=== PATIENT | female | born 1945 | race Caucasian/White ===

== ENCOUNTER 2018-07-07 18:29 | Inpatient (IN) | payer MEDICARE, OTHER ==
[~2018-07-07] VITALS: Ht 167.6 cm; Wt 113.9 kg
[2018-07-07] MEDS ORDERED: RIVAROXABAN 15 MG TABLET. PO STA (18:39)
[2018-07-07 19:00] LABS: BASO % 1 % (0-3); EOS # 0.2 x10^3/uL (0.0-0.7); EOS % 2 % (0-3); HEMATOCRIT 41.8 % (36.0-47.0); LYMPH # 1.5 x10^3/uL (1.0-4.8); LYMPH % 23 % (24-48); MEAN CORPUSCULAR HEMOGLOBIN 30 pg (25-35); MEAN CORPUSCULAR HGB CONC 34 g/dL (31-37); MEAN CORPUSCULAR VOLUME 91 fL (79-100); MONO # 0.7 x10^3/uL (0.0-1.1); MONO % 11 % (0-9); NEUT # 4.2 x10^3uL (1.8-7.7); NEUT % 63 % (31-73); PLATELET COUNT 329 x10^3/uL (140-400); RED BLOOD COUNT 4.62 x10^6/uL (3.50-5.40); RED CELL DISTRIBUTION WIDTH 13.9 % (11.5-14.5); WHITE BLOOD COUNT 6.6 x10^3/uL (4.0-11.0)
[2018-07-07] MEDS ORDERED: dilTIAZem IV PUSH 25 MG/5 ML VIAL IVP ONE (19:00)
[2018-07-07] MEDS ORDERED: dilTIAZem INJ 125 MG in IV DEXTROSE 5% 100ML 100 ML IV ONE (19:00)
[2018-07-07] MEDS ORDERED: IV NORMAL SALINE 500ML BAG 500 ML IV ONE (19:00)
[2018-07-07 19:08] LABS: CALCIUM 10.8 mg/dL (8.5-10.1); CREATININE 0.8 mg/dL (0.6-1.0); GFR 70.3; POTASSIUM 4.4 mmol/L (3.5-5.1)
[2018-07-07 19:10] LABS: PROTHROMBIN TIME PATIENT 13.1 SEC (11.7-14.0)
[2018-07-07 19:14] LABS: ALBUMIN 2.8 g/dL (3.4-5.0); ALBUMIN/GLOBULIN RATIO 0.6 (1.0-1.7); TOTAL BILIRUBIN 0.3 mg/dL (0.2-1.0); TOTAL PROTEIN 7.5 g/dL (6.4-8.2)
[2018-07-07 19:22] LABS: BILIRUBIN,URINE NEGATIVE (NEG); CLARITY,URINE CLEAR; COLOR,URINE YELLOW; NITRITE,URINE NEGATIVE (NEG); PROTEIN,URINE NEGATIVE (NEG-TRACE); UROBILINOGEN,URINE 0.2 mg/dL (0.2 mg/dL)
--- NOTE | 2018-07-07 19:34 | RAD ---
EXAM: Chest, single view. HISTORY: Shortness of air. COMPARISON: None. FINDINGS: A frontal view of the chest is obtained. There is mild increased central interstitial opacity likely due to atelectasis. There is no consolidation, pleural effusion or pneumothorax. The heart is normal in size. IMPRESSION: Mild central increased interstitial opacity without eliu congestion or focal infiltrate. Electronically signed by: Connie Kirkpatrick MD (07/07/2018 7:32 PM) [facility]
[2018-07-07 19:49] LABS: BACTERIA,URINE 0 /HPF (0-FEW); RBC,URINE OCC /HPF (0-2); SQUAMOUS EPITHELIAL CELL,UR FEW /LPF
--- NOTE | 2018-07-07 20:03 | PHYS DOC ---
Past Medical History Past Medical History: CHF, COPD, Dementia, Diabetes-Type II, GERD, High Cholesterol, Hypertension Additional Past Medical Histor: MS, Alcohol Use: None Drug Use: None Adult General Chief Complaint Chief Complaint: CHEST PAIN HPI HPI Patient is a 72 year old [facility] with [facility] pressure and a fall she had a fall around 11 AM she said she was outside and she tripped. About 2 hours after that she began to develop some palpitations and chest pressure felt like her heart was racing possible mild shortness of breath no fever history is somewhat limited by dementia. Review of Systems Review of Systems Somewhat limited by dementia overall Current Medications Current Medications Current Medications Medications (Trade) Dose Ordered Sig/Jane Start Time Stop Time Status Last Admin Dose Admin Diltiazem HCl (Cardizem Iv Push) 10 mg 1X ONCE 07/07/18 19:00 07/07/18 19:01 DC 07/07/18 19:04 10 MG Diltiazem HCl 125 mg/Dextrose 125 ml @ 5 mls/hr 1X ONCE 07/07/18 19:00 07/08/18 19:59 07/07/18 19:08 5 MLS/HR Rivaroxaban (Xarelto) 15 mg 1X STAT 07/07/18 18:39 07/07/18 18:47 DC 07/07/18 19:01 15 MG Sodium Chloride 500 ml @ 500 mls/hr 1X ONCE 07/07/18 19:00 07/07/18 19:59 DC 07/07/18 19:08 500 MLS/HR Allergies Allergies Allergies Coded Allergies Type Severity Reaction Last Updated Verified Unable to Assess 07/07/18 No Physical Exam Physical Exam Constitutional: Well developed, well nourished, no acute distress, non-toxic appearance. [] HENT: Normocephalic, atraumatic, bilateral external ears normal, oropharynx moist, no oral exudates, nose normal. [] Eyes: PERRLA, EOMI, conjunctiva normal, no discharge. [] Neck: Normal range of motion, no tenderness, supple, no stridor. [] Cardiovascular: Tachycardic and irregular no definite murmurs Lungs & Thorax: Bilateral breath sounds clear to auscultation [] Abdomen: Bowel sounds normal, soft, no tenderness, no masses, no pulsatile masses. [] Skin: Warm, dry, no erythema, no rash. [] Back: No tenderness, no CVA tenderness. [] Extremities: No tenderness, no cyanosis, no clubbing, ROM intact, 1+ symmetric edema urologic: Alert and oriented X 3, normal motor function, normal sensory function , no focal deficits noted. [] Psychologic: Affect normal, judgement normal, mood normal. [] Current Patient Data Vital Signs Vital Signs Date Time Temp Pulse Resp B/P (MAP) Pulse Ox O2 Delivery O2 Flow Rate FiO2 07/07/18 19:04 133 156/84 07/07/18 18:30 97.7 20 97 Room Air 97.7 Lab Values Laboratory Tests Test 07/07/18 18:48 07/07/18 18:50 White Blood Count 6.6 x10^3/uL (4.0-11.0) Red Blood Count 4.62 x10^6/uL (3.50-5.40) Hemoglobin 14.0 g/dL (12.0-15.5) Hematocrit 41.8 % (36.0-47.0) Mean Corpuscular Volume 91 fL (79-100) Mean Corpuscular Hemoglobin 30 pg (25-35) Mean Corpuscular Hemoglobin Concent 34 g/dL (31-37) Red Cell Distribution Width 13.9 % (11.5-14.5) Platelet Count 329 x10^3/uL (140-400) Neutrophils (%) (Auto) 63 % (31-73) Lymphocytes (%) (Auto) 23 % (24-48) L Monocytes (%) (Auto) 11 % (0-9) H Eosinophils (%) (Auto) 2 % (0-3) Basophils (%) (Auto) 1 % (0-3) Neutrophils # (Auto) 4.2 x10^3uL (1.8-7.7) Lymphocytes # (Auto) 1.5 x10^3/uL (1.0-4.8) Monocytes # (Auto) 0.7 x10^3/uL (0.0-1.1) Eosinophils # (Auto) 0.2 x10^3/uL (0.0-0.7) Basophils # (Auto) 0.0 x10^3/uL (0.0-0.2) Sodium Level 138 mmol/L (136-145) Potassium Level 4.4 mmol/L (3.5-5.1) Chloride Level 100 mmol/L (98-107) Carbon Dioxide Level 31 mmol/L (21-32) Anion Gap 7 (6-14) Blood Urea Nitrogen 22 mg/dL (7-20) H Creatinine 0.8 mg/dL (0.6-1.0) Estimated GFR (Cockcroft-Gault) 70.3 BUN/Creatinine Ratio 28 (6-20) H Glucose Level 164 mg/dL (70-99) H Calcium Level 10.8 mg/dL (8.5-10.1) H Total Bilirubin 0.3 mg/dL (0.2-1.0) Aspartate Amino Transferase (AST) 32 U/L (15-37) Alanine Aminotransferase (ALT) 39 U/L (14-59) Alkaline Phosphatase 176 U/L (46-116) H Troponin I Quantitative < 0.017 ng/mL (0.000-0.055) JX-[id number]-Z-Type Natriuretic Peptide 78 pg/mL (0-124) Total Protein 7.5 g/dL (6.4-8.2) Albumin 2.8 g/dL (3.4-5.0) L Albumin/Globulin Ratio 0.6 (1.0-1.7) L Thyroid Stimulating Hormone (TSH) 2.788 uIU/mL (0.358-3.74) Ethyl Alcohol Level < 10 mg/dL (0-10) Urine Collection Type Unknown Urine Color Yellow Urine Clarity Clear Urine pH 7.0 Urine Specific [place] <=1.005 Urine Protein Negative mg/dL (NEG-TRACE) Urine Glucose (UA) Negative mg/dL (NEG) Urine Ketones (Stick) Negative mg/dL (NEG) Urine Blood Negative (NEG) Urine Nitrite Negative (NEG) Urine Bilirubin Negative (NEG) Urine Urobilinogen Dipstick 0.2 mg/dL (0.2 mg/dL) Urine Leukocyte Esterase Trace (NEG) Urine RBC Occ /HPF (0-2) Urine WBC 1-4 /HPF (0-4) Urine Squamous Epithelial Cells Few /LPF Urine Bacteria 0 /HPF (0-FEW) Laboratory Tests 07/07/18 18:48 Laboratory Tests 07/07/18 18:48 EKG EKG []A. fib RVR rate 162 ST changes noted laterally probably rate related ST depressions no STEMI seen. Radiology/Procedures Radiology/Procedures [] Impressions: IMPRESSION: Mild central increased interstitial opacity without eliu congestion or focal infiltrate. Electronically signed by: Connie Granados MD (07/07/2018 7:32 PM) [facility] DICTATED and SIGNED BY: CONNIE GRANADOS MD DATE: 07/07/181931 Course & Med Decision Making Course & Med Decision Making Pertinent Labs and Imaging studies reviewed. (See chart for details) 72-year-old female with a history of GERD hypothyroidism dementia presenting with atrial fibrillation with RVR appears to be a new diagnosis based on my [facility]. She was given a dose of Xarelto unknown time frame of onset given her dementia do not rely on the history. Troponin negative chest x-ray looks good patient was started on a diltiazem drip I watched her closely in the emergency room her heart rate came down to 1:15 and she was feeling better discussed with Dr. Moose michael admitted to the hospital for further evaluation and treatment. Critical care time was 35 minutes exclusive of procedures. Dragon Disclaimer Dragon Disclaimer This electronic medical record was generated, in whole or in part, using a voice recognition dictation system. Departure Departure Impression: Primary Impression: Atrial fibrillation with RVR Disposition: ADMITTED INPATIENT Admitting Physician: Ricardo Centeno Condition: STABLE ANNE AGUILAR MD Jul 07, 2018 20:03
[2018-07-07] MEDS ORDERED: MAGNESIUM SULFATE 1GM 100 ML IV ONE (20:30)
[2018-07-07 23:45] VITALS: BP 160/100
[2018-07-08] VITALS (12 sets, daily range): BP systolic 85–154; BP diastolic 48–103
[2018-07-08] MEDS: ACETAMINOPHEN 325 MG TABLET. PO PRN ×2 (02:19→10:23)
--- NOTE | 2018-07-08 07:04 | EKG ---
[facility] [address] [place] [address] Test Date: 2018-07-07 Test Time: 18:37:38 Pat Name: CHRISTOPHE PEÑA Department: Room: [facility] Gender: F Informatics Physician Liaison: : 1945 Requested By: ANNE AGUILAR Order Number: [id number] Reading MD: Raudel Zhou MD Measurements Intervals [place] Rate: 162 P: DE: QRS: -3 QRSD: 72 T: 40 QT: 278 QTc: 463 Interpretive Statements ATRIAL FIBRILLATION WITH RVR NON-SPECIFIC ST/T CHANGES Electronically Signed On 07-16-2018 22:50:22 CDT by Raudel Zhou MD
[2018-07-08] MEDS ORDERED: dilTIAZem INJ 125 MG in IV DEXTROSE 5% 100ML 100 ML IV PRN (08:00)
--- NOTE | 2018-07-08 08:00 | NUR ---
Patient frequently repeating questions. States that she doesn't remember coming into the hospital. Doesn't recall living at a [facility]. States that she is from [place].
--- NOTE | 2018-07-08 10:20 | NUR ---
Patient c/o headache pain.
[2018-07-08 10:24] LABS: ALBUMIN 2.7 g/dL (3.4-5.0); ALBUMIN/GLOBULIN RATIO 0.7 (1.0-1.7); CALCIUM 10.6 mg/dL (8.5-10.1); CREATININE 0.8 mg/dL (0.6-1.0); GFR 70.3; MAGNESIUM 1.9 mg/dL (1.8-2.4); TOTAL BILIRUBIN 0.4 mg/dL (0.2-1.0); TOTAL PROTEIN 6.8 g/dL (6.4-8.2)
[2018-07-08 10:46] LABS: HEMATOCRIT 41.8 % (36.0-47.0); HEMOGLOBIN 13.4 g/dL (12.0-15.5); RED BLOOD COUNT 4.55 x10^6/uL (3.50-5.40); RED CELL DISTRIBUTION WIDTH 14.5 % (11.5-14.5); WHITE BLOOD COUNT 6.7 x10^3/uL (4.0-11.0)
--- NOTE | 2018-07-08 10:49 | PDOC1 ---
History and Physical Date of Admission Date of Admission DATE: 07/08/18 TIME: 10:49 Identification/Chief Complaint Chief Complaint SEEN IN ER , brought in by ambulance from a [facility] with chest pressure and a fall she had a fall around 11 AM 07/07 ' was outside and she tripped." she began to develop some palpitations and chest pressure felt like her heart was racing WITH mild shortness of breath atrial fibrillation with RVR appears, new diagnosis based on my review of her [facility] records. Past Medical History Past Medical History Past Medical History Past Medical History Past Medical History: CHF, COPD, Dementia, Diabetes-Type II, GERD, High Cholesterol, Hypertension Additional Past Medical Histor: MS, Alcohol Use: None Drug Use: None family hx obesity CENTRAL NERVOUS SYSTEM: Dementia Family History Family History: Hypertension Social History Smoke: No ALCOHOL: none Drugs: None Current Medications Current Medications Current Medications Diltiazem HCl (Cardizem Iv Push) 10 mg 1X ONCE IVP Last administered on at 19:04; Start 07/07/18 at 19:00; Stop 07/07/18 at 19:01; Status DC Diltiazem HCl 125 mg/Dextrose 125 ml @ 5 mls/hr 1X ONCE IV Last administered on 07/07/18at 19:08; Start 07/07/18 at 19:00; Stop 07/08/18 at 19:59 Rivaroxaban (Xarelto) 15 mg 1X STAT PO Last administered on 07/07/18at 19:01; Start 07/07/18 at 18:39; Stop 07/07/18 at 18:47; Status DC Sodium Chloride 500 ml @ 500 mls/hr 1X ONCE IV Last administered on at 19:08; Start 07/07/18 at 19:00; Stop 07/07/18 at 19:59; Status DC Magnesium Sulfate/ Dextrose 100 ml @ 100 mls/hr 1X ONCE IV Last administered on 07/07/18at 23:17; Start 07/07/18 at 20:30; Stop 07/07/18 at 21:29; Status DC Acetaminophen (Tylenol) 650 mg PRN Q4HRS PRN PO MILD PAIN / TEMP Last administered on 07/08/18at 10:23; Start 07/08/18 at 01:45 Diltiazem HCl 125 mg/Dextrose 125 ml @ 5 mls/hr CONT PRN IV SEE I/O RECORD Last administered on 07/08/18at 08:00; Start 07/08/18 at 08:00 Allergies Allergies: Coded Allergies: Sulfa (Sulfonamide Antibiotics) (Verified Allergy, Unknown, 07/07/18) iodine (Verified Allergy, Unknown, 07/07/18) penicillin G (Verified Allergy, Unknown, 07/07/18) rosiglitazone (Verified Allergy, Unknown, 07/07/18) ROS General: No: Chills, Night Sweats, Fatigue, Malaise, Appetite, Other PSYCHOLOGICAL ROS: YES: Memory difficulties Eyes: Yes Decreased vision HEENT: No: Heacaches, Visual Changes, Hearing change, Nasal congestion, Nasal discharge, Oral lesions, Sinus pain, Sore Throat, Epistaxis, Sneezing, Snoring, Tinnitus, Vertigo, Vocal changes, Other ALLERGY AND IMMUNOLOGY: No: Hives, Insect Bite Sensitivity, Itchy/Watery Eyes, Nasal Congestion, Post Nasal Drip, Seasonal Allergies, Other ENDOCRINE: No: Breast Changes, Galactorrhea, Hair Pattern Changes, Hot Flashes , Malaise/lethargy, Mood Swings, Palpitations, Polydipsia/polyuria, Skin Changes , Temperature Intolerance, Unexpected Weight Changes, Other Cardiovascular: yes Palpitations Gastrointestinal: No Nausea, No Vomiting, No Abdominal Pain, No Diarrhea, No Constipation, No Melena, No Hematochezia, No Other Genitourinary: No Dysuria, No Frequency, No Incontinence, No Hematuria, No Retention, No Discharge, No Urgency, No Pain, No Flank Pain, No Other, No , No , No , No , No , No , No Musculoskeletal: Yes Joint Stiffness Neurological: Yes Confusion Skin: No Dry Skin, No Eczema, No Hair Changes, No Lumps, No Mole Changes, No Mottling, No Nail Changes, No Pruritus, No Rash, No Skin Lesion Changes, No Other, No Acne Physical Exam Physical Exam Physical Exam Physical Exam Constitutional: Well developed, well nourished, no acute distress, non-toxic appearance. [] HENT: Normocephalic, atraumatic, bilateral external ears normal, oropharynx moist, no oral exudates, nose normal. [] Eyes: PERRLA, EOMI, conjunctiva normal, no discharge. [] Neck: Normal range of motion, no tenderness, supple, no stridor. [] Cardiovascular: Tachycardic and irregular Lungs & Thorax: Bilateral breath sounds clear to auscultation [] Abdomen: Bowel sounds normal, soft, no tenderness, no masses, no pulsatile masses. [] Skin: Warm, dry, no erythema, no rash. [] Back: No tenderness, no CVA tenderness. [] Extremities: No tenderness, no cyanosis, no clubbing, ROM intact, 1+ symmetric edema urologic: Alert and oriented X 3, normal motor function, normal sensory function , no focal deficits noted. [] Psychologic: mood normal. [] General: Cooperative Breasts: Not examined Abdomen: Soft Rectal Exam: not examined Neuro: Cranial nerves 3-12 NL Vitals Vitals Vital Signs Date Time Temp Pulse Resp B/P (MAP) Pulse Ox O2 Delivery O2 Flow Rate FiO2 07/08/18 08:00 Room Air 07/08/18 07:00 98.1 89 12 118/77 (91) 99 98.1 Labs Labs Laboratory Tests Test 07/07/18 18:48 07/07/18 18:50 07/07/18 23:00 07/08/18 03:00 White Blood Count 6.6 x10^3/uL (4.0-11.0) Red Blood Count 4.62 x10^6/uL (3.50-5.40) Hemoglobin 14.0 g/dL (12.0-15.5) Hematocrit 41.8 % (36.0-47.0) Mean Corpuscular Volume 91 fL (79-100) Mean Corpuscular Hemoglobin 30 pg (25-35) Mean Corpuscular Hemoglobin Concent 34 g/dL (31-37) Red Cell Distribution Width 13.9 % (11.5-14.5) Platelet Count 329 x10^3/uL (140-400) Neutrophils (%) (Auto) 63 % (31-73) Lymphocytes (%) (Auto) 23 % (24-48) Monocytes (%) (Auto) 11 % (0-9) Eosinophils (%) (Auto) 2 % (0-3) Basophils (%) (Auto) 1 % (0-3) Neutrophils # (Auto) 4.2 x10^3uL (1.8-7.7) Lymphocytes # (Auto) 1.5 x10^3/uL (1.0-4.8) Monocytes # (Auto) 0.7 x10^3/uL (0.0-1.1) Eosinophils # (Auto) 0.2 x10^3/uL (0.0-0.7) Basophils # (Auto) 0.0 x10^3/uL (0.0-0.2) Prothrombin Time 13.1 SEC (11.7-14.0) Prothromb Time International Ratio 1.0 (0.8-1.1) Sodium Level 138 mmol/L (136-145) 137 mmol/L (136-145) Potassium Level 4.4 mmol/L (3.5-5.1) 4.0 mmol/L (3.5-5.1) Chloride Level 100 mmol/L (98-107) 101 mmol/L (98-107) Carbon Dioxide Level 31 mmol/L (21-32) 30 mmol/L (21-32) Anion Gap 7 (6-14) 6 (6-14) Blood Urea Nitrogen 22 mg/dL (7-20) 15 mg/dL (7-20) Creatinine 0.8 mg/dL (0.6-1.0) 0.8 mg/dL (0.6-1.0) Estimated GFR (Cockcroft-Gault) 70.3 70.3 BUN/Creatinine Ratio 28 (6-20) 19 (6-20) Glucose Level 164 mg/dL (70-99) 177 mg/dL (70-99) Calcium Level 10.8 mg/dL (8.5-10.1) 10.6 mg/dL (8.5-10.1) Magnesium Level 1.7 mg/dL (1.8-2.4) 1.9 mg/dL (1.8-2.4) Total Bilirubin 0.3 mg/dL (0.2-1.0) 0.4 mg/dL (0.2-1.0) Aspartate Amino Transf (AST/SGOT) 32 U/L (15-37) 26 U/L (15-37) Alanine Aminotransferase (ALT/SGPT) 39 U/L (14-59) 35 U/L (14-59) Alkaline Phosphatase 176 U/L (46-116) 146 U/L (46-116) Troponin I Quantitative < 0.017 ng/mL (0.000-0.055) < 0.017 ng/mL (0.000-0.055) 0.024 ng/mL (0.000-0.055) AX-Pzi-F-Type Natriuretic Peptide 78 pg/mL (0-124) Total Protein 7.5 g/dL (6.4-8.2) 6.8 g/dL (6.4-8.2) Albumin 2.8 g/dL (3.4-5.0) 2.7 g/dL (3.4-5.0) Albumin/Globulin Ratio 0.6 (1.0-1.7) 0.7 (1.0-1.7) Thyroid Stimulating Hormone (TSH) 2.788 uIU/mL (0.358-3.74) Ethyl Alcohol Level < 10 mg/dL (0-10) Urine Collection Type Unknown Urine Color Yellow Urine Clarity Clear Urine pH 7.0 Urine Specific [place] <=1.005 Urine Protein Negative mg/dL (NEG-TRACE) Urine Glucose (UA) Negative mg/dL (NEG) Urine Ketones (Stick) Negative mg/dL (NEG) Urine Blood Negative (NEG) Urine Nitrite Negative (NEG) Urine Bilirubin Negative (NEG) Urine Urobilinogen Dipstick 0.2 mg/dL (0.2 mg/dL) Urine Leukocyte Esterase Trace (NEG) Urine RBC Occ /HPF (0-2) Urine WBC 1-4 /HPF (0-4) Urine Squamous Epithelial Cells Few /LPF Urine Bacteria 0 /HPF (0-FEW) Laboratory Tests Test 07/07/18 18:48 07/07/18 18:50 07/07/18 23:00 07/08/18 03:00 White Blood Count 6.6 x10^3/uL (4.0-11.0) Red Blood Count 4.62 x10^6/uL (3.50-5.40) Hemoglobin 14.0 g/dL (12.0-15.5) Hematocrit 41.8 % (36.0-47.0) Mean Corpuscular Volume 91 fL (79-100) Mean Corpuscular Hemoglobin 30 pg (25-35) Mean Corpuscular Hemoglobin Concent 34 g/dL (31-37) Red Cell Distribution Width 13.9 % (11.5-14.5) Platelet Count 329 x10^3/uL (140-400) Neutrophils (%) (Auto) 63 % (31-73) Lymphocytes (%) (Auto) 23 % (24-48) Monocytes (%) (Auto) 11 % (0-9) Eosinophils (%) (Auto) 2 % (0-3) Basophils (%) (Auto) 1 % (0-3) Neutrophils # (Auto) 4.2 x10^3uL (1.8-7.7) Lymphocytes # (Auto) 1.5 x10^3/uL (1.0-4.8) Monocytes # (Auto) 0.7 x10^3/uL (0.0-1.1) Eosinophils # (Auto) 0.2 x10^3/uL (0.0-0.7) Basophils # (Auto) 0.0 x10^3/uL (0.0-0.2) Prothrombin Time 13.1 SEC (11.7-14.0) Prothromb Time International Ratio 1.0 (0.8-1.1) Sodium Level 138 mmol/L (136-145) 137 mmol/L (136-145) Potassium Level 4.4 mmol/L (3.5-5.1) 4.0 mmol/L (3.5-5.1) Chloride Level 100 mmol/L (98-107) 101 mmol/L (98-107) Carbon Dioxide Level 31 mmol/L (21-32) 30 mmol/L (21-32) Anion Gap 7 (6-14) 6 (6-14) Blood Urea Nitrogen 22 mg/dL (7-20) 15 mg/dL (7-20) Creatinine 0.8 mg/dL (0.6-1.0) 0.8 mg/dL (0.6-1.0) Estimated GFR (Cockcroft-Gault) 70.3 70.3 BUN/Creatinine Ratio 28 (6-20) 19 (6-20) Glucose Level 164 mg/dL (70-99) 177 mg/dL (70-99) Calcium Level 10.8 mg/dL (8.5-10.1) 10.6 mg/dL (8.5-10.1) Magnesium Level 1.7 mg/dL (1.8-2.4) 1.9 mg/dL (1.8-2.4) Total Bilirubin 0.3 mg/dL (0.2-1.0) 0.4 mg/dL (0.2-1.0) Aspartate Amino Transf (AST/SGOT) 32 U/L (15-37) 26 U/L (15-37) Alanine Aminotransferase (ALT/SGPT) 39 U/L (14-59) 35 U/L (14-59) Alkaline Phosphatase 176 U/L (46-116) 146 U/L (46-116) Troponin I Quantitative < 0.017 ng/mL (0.000-0.055) < 0.017 ng/mL (0.000-0.055) 0.024 ng/mL (0.000-0.055) FN-Epo-W-Type Natriuretic Peptide 78 pg/mL (0-124) Total Protein 7.5 g/dL (6.4-8.2) 6.8 g/dL (6.4-8.2) Albumin 2.8 g/dL (3.4-5.0) 2.7 g/dL (3.4-5.0) Albumin/Globulin Ratio 0.6 (1.0-1.7) 0.7 (1.0-1.7) Thyroid Stimulating Hormone (TSH) 2.788 uIU/mL (0.358-3.74) Ethyl Alcohol Level < 10 mg/dL (0-10) Urine Collection Type Unknown Urine Color Yellow Urine Clarity Clear Urine pH 7.0 Urine Specific [place] <=1.005 Urine Protein Negative mg/dL (NEG-TRACE) Urine Glucose (UA) Negative mg/dL (NEG) Urine Ketones (Stick) Negative mg/dL (NEG) Urine Blood Negative (NEG) Urine Nitrite Negative (NEG) Urine Bilirubin Negative (NEG) Urine Urobilinogen Dipstick 0.2 mg/dL (0.2 mg/dL) Urine Leukocyte Esterase Trace (NEG) Urine RBC Occ /HPF (0-2) Urine WBC 1-4 /HPF (0-4) Urine Squamous Epithelial Cells Few /LPF Urine Bacteria 0 /HPF (0-FEW) VTE Prophylaxis Ordered VTE Prophylaxis Devices: Yes VTE Pharmacological Prophylaxi: Yes Assessment/Plan Assessment/Plan ASSESSMENT AFIB with RVR; CHF Hypertension Hyperlipidemia Diabetes, 2 Dementia Hypomagnesemia; replaced plan echo Cardizem ASA 34 MIN CC TIME AUGUSTINE ELDRIDGE MD Jul 08, 2018 10:49
--- NOTE | 2018-07-08 11:13 | PDOC2 ---
LAITH PERDOMO DIRECTOR AUDIENCE MARKETING 07/08/18 1113: CARDIAC CONSULT DATE OF CONSULT Date of Consult DATE: 07/08/18 TIME: 11:07 REASON FOR CONSULT Reason for Consult: AFIB with RVR REFERRING PHYSICIAN Referring Physician: Dr. De La Paz SOURCE Source: Chart review, Patient HISTORY OF PRESENT ILLNESS HISTORY OF PRESENT ILLNESS This is a 72 yo female who presented from nursing facility secondary to chest pressure, palpitations, and fall. Patient has a history of dementia and unable to provide any specifics regarding hospitalization. Cannot recall fall. Per chart review, patient tripped and had fall outside. About 2 hours later, had some palpitations, chest pressure; felt like her heart was racing. Denies any chest pain, palpitations, dizziness, diaphoresis, SOA, LE edema, orthopnea, or PND. Was noted in AFIB upon arrival, which prompted this consult. No h/o AFIB per [facility] records. PAST MEDICAL HISTORY Cardiovascular: CHF, HTN, Hyperlipidemia Pulmonary: COPD CENTRAL NERVOUS SYSTEM: Dementia GI: GERD Heme/Onc: No pertinent hx Hepatobiliary: No pertinent hx Psych: Anxiety, Depression Musculoskeletal: Osteoarthritis, Other (MS) Rheumatologic: No pertinent hx Infectious disease: No pertinent hx ENT: No pertinent hx Renal/: No pertinent hx Endocrine: Diabetes, Hypothyroidism Dermatology: No pertinent hx PAST SURGICAL HISTORY Past Surgical History: No pertinent history FAMILY HISTORY Family History: Family History Unknown SOCIAL HISTORY Smoke: No ALCOHOL: none Drugs: None Lives: Detention CURRENT MEDICATIONS CURRENT MEDICATIONS Current Medications Medications (Trade) Dose Ordered Sig/Jane Route PRN Reason Start Time Stop Time Status Last Admin Dose Admin Diltiazem HCl (Cardizem Iv Push) 10 mg 1X ONCE IVP 07/07/18 19:00 07/07/18 19:01 DC 07/07/18 19:04 Diltiazem HCl 125 mg/Dextrose 125 ml @ 5 mls/hr 1X ONCE IV 07/07/18 19:00 07/08/18 19:59 07/07/18 19:08 Rivaroxaban (Xarelto) 15 mg 1X STAT PO 07/07/18 18:39 07/07/18 18:47 DC 07/07/18 19:01 Sodium Chloride 500 ml @ 500 mls/hr 1X ONCE IV 07/07/18 19:00 07/07/18 19:59 DC 07/07/18 19:08 Magnesium Sulfate/ Dextrose 100 ml @ 100 mls/hr 1X ONCE IV 07/07/18 20:30 07/07/18 21:29 DC 07/07/18 23:17 Acetaminophen (Tylenol) 650 mg PRN Q4HRS PRN PO MILD PAIN / TEMP 07/08/18 01:45 07/08/18 10:23 Diltiazem HCl 125 mg/Dextrose 125 ml @ 5 mls/hr CONT PRN IV SEE I/O RECORD 07/08/18 08:00 07/08/18 08:00 ALLERGIES ALLERGIES: Coded Allergies: Sulfa (Sulfonamide Antibiotics) (Verified Allergy, Unknown, 07/07/18) iodine (Verified Allergy, Unknown, 07/07/18) penicillin G (Verified Allergy, Unknown, 07/07/18) rosiglitazone (Verified Allergy, Unknown, 07/07/18) PHYSICAL EXAM General: Alert, Cooperative, No acute distress, Other (alert to self and place) HEENT: Atraumatic Lungs: Clear to auscultation, Normal air movement Heart: Normal S1, Normal S2, Other (tele AFIB with controlled rate) Abdomen: Soft, No tenderness Extremities: No edema, Normal pulses Skin: No significant lesion Neuro: Normal speech, Sensation intact Psych/Mental Status: Mood NL MUSCULOSKELETAL: Osteoarthritic changes both hands VITALS VITALS Vital Signs Date Time Temp Pulse Resp B/P (MAP) Pulse Ox O2 Delivery O2 Flow Rate FiO2 07/08/18 11:00 97.7 76 18 109/72 (84) 98 Room Air 97.7 LABS Lab: Laboratory Tests Test 07/07/18 18:48 07/07/18 18:50 07/07/18 23:00 07/08/18 03:00 White Blood Count 6.6 x10^3/uL (4.0-11.0) 6.7 x10^3/uL (4.0-11.0) Red Blood Count 4.62 x10^6/uL (3.50-5.40) 4.55 x10^6/uL (3.50-5.40) Hemoglobin 14.0 g/dL (12.0-15.5) 13.4 g/dL (12.0-15.5) Hematocrit 41.8 % (36.0-47.0) 41.8 % (36.0-47.0) Mean Corpuscular Volume 91 fL (79-100) 92 fL (79-100) Mean Corpuscular Hemoglobin 30 pg (25-35) 29 pg (25-35) Mean Corpuscular Hemoglobin Concent 34 g/dL (31-37) 32 g/dL (31-37) Red Cell Distribution Width 13.9 % (11.5-14.5) 14.5 % (11.5-14.5) Platelet Count 329 x10^3/uL (140-400) 317 x10^3/uL (140-400) Neutrophils (%) (Auto) 63 % (31-73) Lymphocytes (%) (Auto) 23 % (24-48) Monocytes (%) (Auto) 11 % (0-9) Eosinophils (%) (Auto) 2 % (0-3) Basophils (%) (Auto) 1 % (0-3) Neutrophils # (Auto) 4.2 x10^3uL (1.8-7.7) Lymphocytes # (Auto) 1.5 x10^3/uL (1.0-4.8) Monocytes # (Auto) 0.7 x10^3/uL (0.0-1.1) Eosinophils # (Auto) 0.2 x10^3/uL (0.0-0.7) Basophils # (Auto) 0.0 x10^3/uL (0.0-0.2) Prothrombin Time 13.1 SEC (11.7-14.0) Prothromb Time International Ratio 1.0 (0.8-1.1) Sodium Level 138 mmol/L (136-145) 137 mmol/L (136-145) Potassium Level 4.4 mmol/L (3.5-5.1) 4.0 mmol/L (3.5-5.1) Chloride Level 100 mmol/L (98-107) 101 mmol/L (98-107) Carbon Dioxide Level 31 mmol/L (21-32) 30 mmol/L (21-32) Anion Gap 7 (6-14) 6 (6-14) Blood Urea Nitrogen 22 mg/dL (7-20) 15 mg/dL (7-20) Creatinine 0.8 mg/dL (0.6-1.0) 0.8 mg/dL (0.6-1.0) Estimated GFR (Cockcroft-Gault) 70.3 70.3 BUN/Creatinine Ratio 28 (6-20) 19 (6-20) Glucose Level 164 mg/dL (70-99) 177 mg/dL (70-99) Calcium Level 10.8 mg/dL (8.5-10.1) 10.6 mg/dL (8.5-10.1) Magnesium Level 1.7 mg/dL (1.8-2.4) 1.9 mg/dL (1.8-2.4) Total Bilirubin 0.3 mg/dL (0.2-1.0) 0.4 mg/dL (0.2-1.0) Aspartate Amino Transf (AST/SGOT) 32 U/L (15-37) 26 U/L (15-37) Alanine Aminotransferase (ALT/SGPT) 39 U/L (14-59) 35 U/L (14-59) Alkaline Phosphatase 176 U/L (46-116) 146 U/L (46-116) Troponin I Quantitative < 0.017 ng/mL (0.000-0.055) < 0.017 ng/mL (0.000-0.055) 0.024 ng/mL (0.000-0.055) GQ-Gpm-N-Type Natriuretic Peptide 78 pg/mL (0-124) Total Protein 7.5 g/dL (6.4-8.2) 6.8 g/dL (6.4-8.2) Albumin 2.8 g/dL (3.4-5.0) 2.7 g/dL (3.4-5.0) Albumin/Globulin Ratio 0.6 (1.0-1.7) 0.7 (1.0-1.7) Thyroid Stimulating Hormone (TSH) 2.788 uIU/mL (0.358-3.74) Ethyl Alcohol Level < 10 mg/dL (0-10) Urine Collection Type Unknown Urine Color Yellow Urine Clarity Clear Urine pH 7.0 Urine Specific Gully <=1.005 Urine Protein Negative mg/dL (NEG-TRACE) Urine Glucose (UA) Negative mg/dL (NEG) Urine Ketones (Stick) Negative mg/dL (NEG) Urine Blood Negative (NEG) Urine Nitrite Negative (NEG) Urine Bilirubin Negative (NEG) Urine Urobilinogen Dipstick 0.2 mg/dL (0.2 mg/dL) Urine Leukocyte Esterase Trace (NEG) Urine RBC Occ /HPF (0-2) Urine WBC 1-4 /HPF (0-4) Urine Squamous Epithelial Cells Few /LPF Urine Bacteria 0 /HPF (0-FEW) ASSESSMENT/PLAN ASSESSMENT/PLAN 1. AFIB with RVR; remains in AFIB with controlled rate on cardizem gtt. New onset. TSH WNL 2. Chronic diastolic CHF; clinically compensated 3. Hypertension; controlled 4. Hyperlipidemia 5. Diabetes, II; as per PCP 6. Dementia 7. Hypomagnesemia; replaced Recommendations Check echo to assess LV function Start oral Cardizem for rate control unless severe LV dysfunction is noted Titrate off Cardizem gtt ASA for stroke prevention for now given comorbidities and report of multiple recent falls Will need to discuss ASA versus OAC with daughter who is DPOA SENAIT JIMENEZ MD 07/09/18 0838: CARDIAC CONSULT ASSESSMENT/PLAN ASSESSMENT/PLAN Patient seen and examined 07/08/18. Agree with BOIL OFF WORKER's assessment and plan. Atrial fibrillation, new onset presently rate controlled with Cardizem - change to by mouth Chest pain on presentation probably secondary to demand ischemia from rapid ventricular response Myocardial infarction has been ruled out Check 2-D echo to assess LV function and rule out wall motion abnormalities We will consider ischemic evaluation as an outpatient Patient is a poor candidate for long-term anticoagulation secondary to fall risk Thank you for your consultation LAITH PERDOMO APRN Jul 08, 2018 11:13 SENAIT JIMENEZ MD Jul 09, 2018 08:38
[2018-07-08 11:39] LABS: CHOLESTEROL/HDL RATIO 3.6
[2018-07-08] MEDS: ASPIRIN ENTERIC COATED 81 MG TABLET.DR. PO SCH (11:51)
--- NOTE | 2018-07-08 14:41 | NUR ---
SS following for discharge planning. SS reviewed pt chart. Pt is from home and is currently on room air. No discharge needs noted at this time. SS will continue to follow for pending discharge needs.
[2018-07-08] MEDS ORDERED: LORA0.5T96 PO (17:49)
[2018-07-08] MEDS ORDERED: DONE10TA61 PO (17:49)
[2018-07-08] MEDS ORDERED: SENN-80 PO (17:49)
[2018-07-08] MEDS ORDERED: FURO-69 PO (17:49)
[2018-07-08] MEDS ORDERED: POTA10TA6 PO (17:49)
[2018-07-08] MEDS ORDERED: ROPI0.5T PO (17:49)
[2018-07-08] MEDS ORDERED: TRAM50TA PO (17:49)
[2018-07-08] MEDS ORDERED: AMLO5TAB4 PO (17:49)
[2018-07-08] MEDS ORDERED: MAGN400T22 PO (17:49)
[2018-07-08] MEDS ORDERED: ISOS30TA4 PO (17:49)
[2018-07-08] MEDS ORDERED: DESV50TA PO (17:49)
[2018-07-08] MEDS ORDERED: DESVENLAFAXINE 25 MG TAB.ER.24H PO SCH (21:00)
[2018-07-08] MEDS: ATORVASTATIN CALCIUM 10 MG TABLET. PO SCH (21:29)
[2018-07-08] MEDS: traMADol 50 MG TABLET PO PRN (21:29)
[2018-07-08] MEDS: LORazepam 0.5 MG TABLET PO SCH (21:29)
[2018-07-08] MEDS: rOPINIRole 0.25 MG TABLET. PO SCH (21:30)
[2018-07-08] MEDS: DONEPEZIL HCL 10 MG TABLET. PO SCH (21:30)
[2018-07-09 03:00] VITALS: BP 166/85
[2018-07-09 05:01] LABS: BASO % 1 % (0-3); EOS # 0.2 x10^3/uL (0.0-0.7); EOS % 3 % (0-3); HEMATOCRIT 39.9 % (36.0-47.0); HEMOGLOBIN 13.1 g/dL (12.0-15.5); LYMPH # 1.5 x10^3/uL (1.0-4.8); LYMPH % 24 % (24-48); MEAN CORPUSCULAR HEMOGLOBIN 30 pg (25-35); MEAN CORPUSCULAR HGB CONC 33 g/dL (31-37); MEAN CORPUSCULAR VOLUME 90 fL (79-100); MONO # 0.8 x10^3/uL (0.0-1.1); MONO % 13 % (0-9); NEUT # 3.7 x10^3uL (1.8-7.7); NEUT % 60 % (31-73); PLATELET COUNT 313 x10^3/uL (140-400); RED BLOOD COUNT 4.44 x10^6/uL (3.50-5.40); RED CELL DISTRIBUTION WIDTH 13.9 % (11.5-14.5); WHITE BLOOD COUNT 6.3 x10^3/uL (4.0-11.0)
[2018-07-09 05:20] LABS: CALCIUM 10.4 mg/dL (8.5-10.1); CREATININE 0.8 mg/dL (0.6-1.0); GFR 70.3; POTASSIUM 4.2 mmol/L (3.5-5.1)
[2018-07-09 07:00] VITALS: BP 159/72
[2018-07-09] MEDS ORDERED: LISI10TA2 PO (07:33)
[2018-07-09] MEDS ORDERED: TRAM50TA PO (07:33)
[2018-07-09] MEDS ORDERED: POLY17PO29 PO (07:33)
[2018-07-09] MEDS ORDERED: IBUP-1027 PO (07:33)
[2018-07-09] MEDS ORDERED: ASPI325T8 PO (07:33)
--- NOTE | 2018-07-09 09:50 | CARD ---
MR#: [id number] Date of Study: 07/09/2018 Ordering Physician: LAITH PERDOMO, Referring Physician: CHINTAN MORGAN Tech: Wilma Torrez RDCS APPROVED REPORT EXAM: Two-dimensional and M-mode echocardiogram with Doppler and color Doppler. Other Information Quality : Good Rhythm : NSR INDICATION Atrial Fibrillation 2D DIMENSIONS RVDd2.6 (2.9-3.5cm)Left Atrium(2D)3.0 (1.6-4.0cm) IVSd0.9 (0.7-1.1cm)Aortic Root(2D)3.0 (2.0-3.7cm) LVDd4.5 (3.9-5.9cm)LVOT Diameter2.0 (1.8-2.4cm) PWd1.0 (0.7-1.1cm)LVDs2.8 (2.5-4.0cm) FS (%) 30.0 %SV60.6 ml LVEF(%)60.0 (>50%) Aortic Valve LVOT VTI 29.51cm Mitral Valve MV E Ckkwuezy95.3cm/sMV DECEL [id number] MV A Mjgjpsaw73.4cm/sE/A Ratio0.8 TDI Lateral E' P. V8.62cm/sMedial E' P. V5.73cm/s E/Lateral E'9.3E/Medial E'14.0 Tricuspid Valve TR P. Fmnpbzef438pt/sRAP [id number] TR Peak Gr.[id number] Pulmonary Vein S1 Ffjckpmk22.9cm/sS2 Sjfqrupq12.18cm/s D2 Bmnizwmm88.2cm/s LEFT VENTRICLE The left ventricle is normal size. There is normal left ventricular wall thickness. The left ventricu lar systolic function is normal. The Ejection Fraction is 60-65%. There is normal LV segmental wall m otion. Transmitral Doppler flow pattern is Grade I-abnormal relaxation pattern. RIGHT VENTRICLE The right ventricle is normal size. The right ventricular systolic function is normal. ATRIA The left atrium size is normal. The right atrium size is normal. The interatrial septum is intact wit h no evidence for an atrial septal defect or patent foramen ovale as noted on 2-D or Doppler imaging. AORTIC VALVE The aortic valve is calcified but opens well. Doppler and Color Flow revealed no significant aortic r egurgitation. There is no significant aortic valvular stenosis. MITRAL VALVE The mitral valve is calcified but opens well. There is no evidence of mitral valve prolapse. There is no mitral valve stenosis. Doppler and Color-flow revealed trace mitral regurgitation. TRICUSPID VALVE The tricuspid valve is normal in structure and function. Doppler and Color Flow revealed mild tricusp id regurgitation. There is mild pulmonary hypertension. The PA pressure was estimated at 36 mmHg. The re is no tricuspid valve stenosis. PULMONIC VALVE The pulmonary valve is normal in structure and function. Doppler and Color Flow revealed trace pulmon ic valvular regurgitation. There is no pulmonic valvular stenosis. GREAT VESSELS The aortic root is normal in size. The ascending aorta is mildly dilated at 3.7 cm. The IVC is normal in size and collapses >50% with inspiration. PERICARDIAL EFFUSION There is no evidence of significant pericardial effusion. Critical Notification Critical Value: No <Conclusion> The left ventricular systolic function is normal. The Ejection Fraction is 60-65%. There is normal LV segmental wall motion. Transmitral Doppler flow pattern is Grade I-abnormal relaxation pattern. Trace mitral regurgitation. Mild tricuspid regurgitation. There is mild pulmonary hypertension. The PA pressure was estimated at 36 mmHg. There is no evidence of significant pericardial effusion. Signed by : Devaughn Olivares, Electronically Approved : 07/09/2018 09:49:35
[2018-07-09] MEDS: traMADol 50 MG TABLET PO PRN (10:28)
[2018-07-09] MEDS: ASPIRIN ENTERIC COATED 81 MG TABLET.DR. PO SCH (10:28)
[2018-07-09 11:00] VITALS: BP 176/81
--- NOTE | 2018-07-09 11:02 | PDOC ---
PROGRESS NOTES History of Present Illness History of Present Illness Assessment/Plan Assessment/Plan ASSESSMENT AFIB with RVR; CHF Hypertension Hyperlipidemia Diabetes, 2 Dementia Hypomagnesemia; replaced plan echo Cardizem ASA hypercalcemia, see pcp as outpt to follow soon home ok with cv today Vitals Vitals Vital Signs Date Time Temp Pulse Resp B/P (MAP) Pulse Ox O2 Delivery O2 Flow Rate FiO2 07/09/18 10:28 20 96 Room Air 07/09/18 09:00 53 159/72 07/09/18 07:00 98.1 98.1 Physical Exam General: Alert, Cooperative, No acute distress, Other (alert to self and place) Heart: Normal S1, Normal S2, Other (tele AFIB with controlled rate) Abdomen: Soft, No tenderness Extremities: No edema, Normal pulses Skin: No significant lesion Labs LABS Pulmonary Vein S1 Velocity 58.9cm/s S2 Velocity 44.18cm/s D2 Velocity 44.2cm/s LEFT VENTRICLE The left ventricle is normal size. There is normal left ventricular wall thickness. The left ventricular systolic function is normal. The Ejection Fraction is 60-65%. There is normal LV segmental wall motion. Transmitral Doppler flow pattern is Grade I-abnormal relaxation pattern. RIGHT VENTRICLE The right ventricle is normal size. The right ventricular systolic function is normal. ATRIA The left atrium size is normal. The right atrium size is normal. The interatrial septum is intact with no evidence for an atrial septal defect or patent foramen ovale as noted on 2-D or Doppler imaging. AORTIC VALVE The aortic valve is calcified but opens well. Doppler and Color Flow revealed no significant aortic regurgitation. There is no significant aortic valvular stenosis. MITRAL VALVE The mitral valve is calcified but opens well. There is no evidence of mitral valve prolapse. There is no mitral valve stenosis. Doppler and Color-flow revealed trace mitral regurgitation. TRICUSPID VALVE The tricuspid valve is normal in structure and function. Doppler and Color Flow revealed mild tricuspid regurgitation. There is mild pulmonary hypertension. The PA pressure was estimated at 36 mmHg. There is no tricuspid valve stenosis. PULMONIC VALVE The pulmonary valve is normal in structure and function. Doppler and Color Flow revealed trace pulmonic valvular regurgitation. There is no pulmonic valvular stenosis. GREAT VESSELS The aortic root is normal in size. The ascending aorta is mildly dilated at 3.7 cm. The IVC is normal in size and collapses >50% with inspiration. PERICARDIAL EFFUSION There is no evidence of significant pericardial effusion. Critical Notification Critical Value: No <Conclusion> The left ventricular systolic function is normal. The Ejection Fraction is 60-65%. There is normal LV segmental wall motion. Transmitral Doppler flow pattern is Grade I-abnormal relaxation pattern. Trace mitral regurgitation. Mild tricuspid regurgitation. There is mild pulmonary hypertension. The PA pressure was estimated at 36 mmHg. There is no evidence of significant pericardial effusion. Signed by : Devaughn Olivares, Electronically Approved : 07/09/2018 09:49:35 Laboratory Tests Test 07/09/18 04:30 White Blood Count 6.3 x10^3/uL (4.0-11.0) Red Blood Count 4.44 x10^6/uL (3.50-5.40) Hemoglobin 13.1 g/dL (12.0-15.5) Hematocrit 39.9 % (36.0-47.0) Mean Corpuscular Volume 90 fL (79-100) Mean Corpuscular Hemoglobin 30 pg (25-35) Mean Corpuscular Hemoglobin Concent 33 g/dL (31-37) Red Cell Distribution Width 13.9 % (11.5-14.5) Platelet Count 313 x10^3/uL (140-400) Neutrophils (%) (Auto) 60 % (31-73) Lymphocytes (%) (Auto) 24 % (24-48) Monocytes (%) (Auto) 13 % (0-9) Eosinophils (%) (Auto) 3 % (0-3) Basophils (%) (Auto) 1 % (0-3) Neutrophils # (Auto) 3.7 x10^3uL (1.8-7.7) Lymphocytes # (Auto) 1.5 x10^3/uL (1.0-4.8) Monocytes # (Auto) 0.8 x10^3/uL (0.0-1.1) Eosinophils # (Auto) 0.2 x10^3/uL (0.0-0.7) Basophils # (Auto) 0.0 x10^3/uL (0.0-0.2) Sodium Level 137 mmol/L (136-145) Potassium Level 4.2 mmol/L (3.5-5.1) Chloride Level 102 mmol/L (98-107) Carbon Dioxide Level 29 mmol/L (21-32) Anion Gap 6 (6-14) Blood Urea Nitrogen 17 mg/dL (7-20) Creatinine 0.8 mg/dL (0.6-1.0) Estimated GFR (Cockcroft-Gault) 70.3 Glucose Level 189 mg/dL (70-99) Calcium Level 10.4 mg/dL (8.5-10.1) Assessment and Plan Assessmemt and Plan PULMONIC VALVE The pulmonary valve is normal in structure and function. Doppler and Color Flow revealed trace pulmonic valvular regurgitation. There is no pulmonic valvular stenosis. GREAT VESSELS The aortic root is normal in size. The ascending aorta is mildly dilated at 3.7 cm. The IVC is normal in size and collapses >50% with inspiration. PERICARDIAL EFFUSION There is no evidence of significant pericardial effusion. Critical Notification Critical Value: No <Conclusion> The left ventricular systolic function is normal. The Ejection Fraction is 60-65%. There is normal LV segmental wall motion. Transmitral Doppler flow pattern is Grade I-abnormal relaxation pattern. Trace mitral regurgitation. Mild tricuspid regurgitation. There is mild pulmonary hypertension. The PA pressure was estimated at 36 mmHg. There is no evidence of significant pericardial effusion. Signed by : Devaughn Olivares, Electronically Approved : 07/09/2018 09:49:35 Comment Review of Relevant I have reviewed the following items joce (where applicable) has been applied. Labs Laboratory Tests Test 07/07/18 18:48 07/07/18 18:50 07/07/18 23:00 07/08/18 03:00 White Blood Count 6.6 x10^3/uL (4.0-11.0) 6.7 x10^3/uL (4.0-11.0) Red Blood Count 4.62 x10^6/uL (3.50-5.40) 4.55 x10^6/uL (3.50-5.40) Hemoglobin 14.0 g/dL (12.0-15.5) 13.4 g/dL (12.0-15.5) Hematocrit 41.8 % (36.0-47.0) 41.8 % (36.0-47.0) Mean Corpuscular Volume 91 fL (79-100) 92 fL (79-100) Mean Corpuscular Hemoglobin 30 pg (25-35) 29 pg (25-35) Mean Corpuscular Hemoglobin Concent 34 g/dL (31-37) 32 g/dL (31-37) Red Cell Distribution Width 13.9 % (11.5-14.5) 14.5 % (11.5-14.5) Platelet Count 329 x10^3/uL (140-400) 317 x10^3/uL (140-400) Neutrophils (%) (Auto) 63 % (31-73) Lymphocytes (%) (Auto) 23 % (24-48) Monocytes (%) (Auto) 11 % (0-9) Eosinophils (%) (Auto) 2 % (0-3) Basophils (%) (Auto) 1 % (0-3) Neutrophils # (Auto) 4.2 x10^3uL (1.8-7.7) Lymphocytes # (Auto) 1.5 x10^3/uL (1.0-4.8) Monocytes # (Auto) 0.7 x10^3/uL (0.0-1.1) Eosinophils # (Auto) 0.2 x10^3/uL (0.0-0.7) Basophils # (Auto) 0.0 x10^3/uL (0.0-0.2) Prothrombin Time 13.1 SEC (11.7-14.0) Prothromb Time International Ratio 1.0 (0.8-1.1) Sodium Level 138 mmol/L (136-145) 137 mmol/L (136-145) Potassium Level 4.4 mmol/L (3.5-5.1) 4.0 mmol/L (3.5-5.1) Chloride Level 100 mmol/L (98-107) 101 mmol/L (98-107) Carbon Dioxide Level 31 mmol/L (21-32) 30 mmol/L (21-32) Anion Gap 7 (6-14) 6 (6-14) Blood Urea Nitrogen 22 mg/dL (7-20) 15 mg/dL (7-20) Creatinine 0.8 mg/dL (0.6-1.0) 0.8 mg/dL (0.6-1.0) Estimated GFR (Cockcroft-Gault) 70.3 70.3 BUN/Creatinine Ratio 28 (6-20) 19 (6-20) Glucose Level 164 mg/dL (70-99) 177 mg/dL (70-99) Calcium Level 10.8 mg/dL (8.5-10.1) 10.6 mg/dL (8.5-10.1) Magnesium Level 1.7 mg/dL (1.8-2.4) 1.9 mg/dL (1.8-2.4) Total Bilirubin 0.3 mg/dL (0.2-1.0) 0.4 mg/dL (0.2-1.0) Aspartate Amino Transf (AST/SGOT) 32 U/L (15-37) 26 U/L (15-37) Alanine Aminotransferase (ALT/SGPT) 39 U/L (14-59) 35 U/L (14-59) Alkaline Phosphatase 176 U/L (46-116) 146 U/L (46-116) Troponin I Quantitative < 0.017 ng/mL (0.000-0.055) < 0.017 ng/mL (0.000-0.055) 0.024 ng/mL (0.000-0.055) GR-Fgc-G-Type Natriuretic Peptide 78 pg/mL (0-124) Total Protein 7.5 g/dL (6.4-8.2) 6.8 g/dL (6.4-8.2) Albumin 2.8 g/dL (3.4-5.0) 2.7 g/dL (3.4-5.0) Albumin/Globulin Ratio 0.6 (1.0-1.7) 0.7 (1.0-1.7) Thyroid Stimulating Hormone (TSH) 2.788 uIU/mL (0.358-3.74) Ethyl Alcohol Level < 10 mg/dL (0-10) Urine Collection Type Unknown Urine Color Yellow Urine Clarity Clear Urine pH 7.0 Urine Specific [place] <=1.005 Urine Protein Negative mg/dL (NEG-TRACE) Urine Glucose (UA) Negative mg/dL (NEG) Urine Ketones (Stick) Negative mg/dL (NEG) Urine Blood Negative (NEG) Urine Nitrite Negative (NEG) Urine Bilirubin Negative (NEG) Urine Urobilinogen Dipstick 0.2 mg/dL (0.2 mg/dL) Urine Leukocyte Esterase Trace (NEG) Urine RBC Occ /HPF (0-2) Urine WBC 1-4 /HPF (0-4) Urine Squamous Epithelial Cells Few /LPF Urine Bacteria 0 /HPF (0-FEW) Triglycerides Level 138 mg/dL (0-150) Cholesterol Level 182 mg/dL (0-200) LDL Cholesterol, Calculated 104 mg/dL (0-100) VLDL Cholesterol, Calculated 28 mg/dL (0-40) Non-HDL Cholesterol Calculated 132 mg/dL (0-129) HDL Cholesterol 50 mg/dL (40-60) Cholesterol/HDL Ratio 3.6 Test 07/09/18 04:30 White Blood Count 6.3 x10^3/uL (4.0-11.0) Red Blood Count 4.44 x10^6/uL (3.50-5.40) Hemoglobin 13.1 g/dL (12.0-15.5) Hematocrit 39.9 % (36.0-47.0) Mean Corpuscular Volume 90 fL (79-100) Mean Corpuscular Hemoglobin 30 pg (25-35) Mean Corpuscular Hemoglobin Concent 33 g/dL (31-37) Red Cell Distribution Width 13.9 % (11.5-14.5) Platelet Count 313 x10^3/uL (140-400) Neutrophils (%) (Auto) 60 % (31-73) Lymphocytes (%) (Auto) 24 % (24-48) Monocytes (%) (Auto) 13 % (0-9) Eosinophils (%) (Auto) 3 % (0-3) Basophils (%) (Auto) 1 % (0-3) Neutrophils # (Auto) 3.7 x10^3uL (1.8-7.7) Lymphocytes # (Auto) 1.5 x10^3/uL (1.0-4.8) Monocytes # (Auto) 0.8 x10^3/uL (0.0-1.1) Eosinophils # (Auto) 0.2 x10^3/uL (0.0-0.7) Basophils # (Auto) 0.0 x10^3/uL (0.0-0.2) Sodium Level 137 mmol/L (136-145) Potassium Level 4.2 mmol/L (3.5-5.1) Chloride Level 102 mmol/L (98-107) Carbon Dioxide Level 29 mmol/L (21-32) Anion Gap 6 (6-14) Blood Urea Nitrogen 17 mg/dL (7-20) Creatinine 0.8 mg/dL (0.6-1.0) Estimated GFR (Cockcroft-Gault) 70.3 Glucose Level 189 mg/dL (70-99) Calcium Level 10.4 mg/dL (8.5-10.1) Laboratory Tests Test 07/09/18 04:30 White Blood Count 6.3 x10^3/uL (4.0-11.0) Red Blood Count 4.44 x10^6/uL (3.50-5.40) Hemoglobin 13.1 g/dL (12.0-15.5) Hematocrit 39.9 % (36.0-47.0) Mean Corpuscular Volume 90 fL (79-100) Mean Corpuscular Hemoglobin 30 pg (25-35) Mean Corpuscular Hemoglobin Concent 33 g/dL (31-37) Red Cell Distribution Width 13.9 % (11.5-14.5) Platelet Count 313 x10^3/uL (140-400) Neutrophils (%) (Auto) 60 % (31-73) Lymphocytes (%) (Auto) 24 % (24-48) Monocytes (%) (Auto) 13 % (0-9) Eosinophils (%) (Auto) 3 % (0-3) Basophils (%) (Auto) 1 % (0-3) Neutrophils # (Auto) 3.7 x10^3uL (1.8-7.7) Lymphocytes # (Auto) 1.5 x10^3/uL (1.0-4.8) Monocytes # (Auto) 0.8 x10^3/uL (0.0-1.1) Eosinophils # (Auto) 0.2 x10^3/uL (0.0-0.7) Basophils # (Auto) 0.0 x10^3/uL (0.0-0.2) Sodium Level 137 mmol/L (136-145) Potassium Level 4.2 mmol/L (3.5-5.1) Chloride Level 102 mmol/L (98-107) Carbon Dioxide Level 29 mmol/L (21-32) Anion Gap 6 (6-14) Blood Urea Nitrogen 17 mg/dL (7-20) Creatinine 0.8 mg/dL (0.6-1.0) Estimated GFR (Cockcroft-Gault) 70.3 Glucose Level 189 mg/dL (70-99) Calcium Level 10.4 mg/dL (8.5-10.1) Medications Current Medications Diltiazem HCl (Cardizem Iv Push) 10 mg 1X ONCE IVP Last administered on 19:04; Start 07/07/18 at 19:00; Stop 07/07/18 at 19:01; Status DC Diltiazem HCl 125 mg/Dextrose 125 ml @ 5 mls/hr 1X ONCE IV Last administered on 07/07/18 19:08; Start 07/07/18 at 19:00; Stop 07/08/18 at 19:59; Status DC Rivaroxaban (Xarelto) 15 mg 1X STAT PO Last administered on 07/07/18 19:01; Start 07/07/18 at 18:39; Stop 07/07/18 at 18:47; Status DC Sodium Chloride 500 ml @ 500 mls/hr 1X ONCE IV Last administered on 19:08; Start 07/07/18 at 19:00; Stop 07/07/18 at 19:59; Status DC Magnesium Sulfate/ Dextrose 100 ml @ 100 mls/hr 1X ONCE IV Last administered on 07/07/18at 23:17; Start 07/07/18 at 20:30; Stop 07/07/18 at 21:29; Status DC Acetaminophen (Tylenol) 650 mg PRN Q4HRS PRN PO MILD PAIN / TEMP Last administered on 07/08/18at 10:23; Start 07/08/18 at 01:45 Diltiazem HCl 125 mg/Dextrose 125 ml @ 5 mls/hr CONT PRN IV SEE I/O RECORD Last administered on 07/08/18at 08:00; Start 07/08/18 at 08:00 Diltiazem HCl (Cardizem 24hr Cd) 180 mg DAILY PO Last administered on 11:51; Start 07/08/18 at 12:30 Aspirin (Ecotrin) 81 mg DAILYWBKFT PO Last administered on 07/09/18 10:28; Start 07/08/18 at 12:30 Atorvastatin Calcium (Lipitor) 10 mg QHS PO Last administered on 3/11/19at 21: 29; Start 07/08/18 at 21:00 Lorazepam (Ativan) 0.25 mg HS PO Last administered on 07/08/18at 21:29; Start at 21:15 Tramadol HCl (Ultram) 50 mg PRN Q4HRS PRN PO PAIN MODERATE Last administered on 07/09/18at 10:28; Start 07/08/18 at 21:15 Desvenlafaxine Succinate (Pristiq Er) 50 mg HS PO ; Start 07/08/18 at 21:00; Stop 07/08/18 at 21:09; Status DC Donepezil HCl (Aricept) 10 mg HS PO Last administered on 07/08/18at 21:30; Start 07/08/18 at 21:00 Ropinirole HCl (Requip) 0.5 mg HS PO Last administered on 07/08/18at 21:30; Start 07/08/18 at 21:00 Desvenlafaxine Succinate (Pristiq Er) 50 mg DAILY PO ; Start 07/09/18 at 09:00 Active Scripts Active Reported Tramadol Hcl 50 Mg Tablet 50 Mg PO Q4HRS PRN Aspirin 325 Mg Tablet 1 Tab PO DAILY Ibuprofen 400 Mg Tablet 400 Mg PO DAILY Lisinopril 10 Mg Tablet 1 Tab PO DAILY Miralax (Polyethylene Glycol 3350) 17 Gm Powd.pack 1 Packet PO QHS Senna (Sennosides) 8.6 Mg Tablet 17.2 Mg PO BID 30 Days Ativan (Lorazepam) 0.5 Mg Tablet 0.25 Mg PO HS Aricept (Donepezil Hcl) 10 Mg Tablet 1 Tab PO QHS Norvasc (Amlodipine Besylate) 5 Mg Tablet 1 Tab PO DAILY Requip (Ropinirole Hcl) 0.5 Mg Tablet 1 Tab PO QHS Klor-Con 10 (Potassium Chloride) 10 Meq Tablet.er 10 Meq PO DAILY 30 Days Lasix (Furosemide) 20 Mg Tablet 20 Mg PO DAILY Pristiq Er (Desvenlafaxine Succinate) 50 Mg Tab.er.24h 1 Tab PO DAILY Isosorbide Mononitrate Er (Isosorbide Mononitrate) 30 Mg Tab.er.24h 1 Tab PO DAILY Mag-Oxide (Magnesium Oxide) 400 Mg Tablet 400 Mg PO DAILY Tramadol Hcl 50 Mg Tablet 50 Mg PO BID Vitals/I & O Vital Sign - Last 24 Hours 07/08/18 07/08/18 07/08/18 07/08/18 11:51 16:00 19:00 20:00 Temp 97.7 98.4 97.7 98.4 Pulse 76 76 58 Resp 18 16 B/P (MAP) 109/72 109/72 (84) 141/71 (94) Pulse Ox 98 98 O2 Delivery Room Air Room Air Room Air 07/08/18 07/08/18 07/08/18 07/09/18 21:29 22:29 23:00 03:00 Temp 98.4 98.7 98.4 98.7 Pulse 59 53 Resp 16 12 23 13 B/P (MAP) 154/79 (104) 166/85 (112) Pulse Ox 98 96 96 96 O2 Delivery Room Air Room Air Room Air Room Air 07/09/18 07/09/18 07/09/18 07/09/18 07:00 08:00 09:00 10:28 Temp 98.1 98.1 Pulse 73 53 Resp 17 20 B/P (MAP) 159/72 (101) 159/72 Pulse Ox 96 96 O2 Delivery Room Air Room Air Room Air Intake and Output 07/08/18 07/08/18 07/09/18 15:00 23:00 07:00 Intake Total 240 ml Balance 240 ml AUGUSTINE ELDRIDGE MD Jul 09, 2018 11:02
[2018-07-09] MEDS: DESVENLAFAXINE 25 MG TAB.ER.24H PO SCH (11:38)
--- NOTE | 2018-07-09 12:27 | NUR ---
SS following up with discharge planning. SS received notification that pt was from [facility]. SS contacted [place], ; fax [phone], to verify pt's previous placement. [facility] verified that pt is a LTC resident from there facility and was able to return when medically stable for discharge.
--- NOTE | 2018-07-09 13:35 | PDOC ---
LAITH PERDOMO OYSTER PREPARER 07/09/18 1335: CARDIO Progress Notes Date and Time Date of Service 07/09/18 Time of Evaluation 1301 Subjective Subjective: No Chest Pain, No shortness of breath, No Palpitations Vitals Vitals Vital Signs Date Time Temp Pulse Resp B/P (MAP) Pulse Ox O2 Delivery O2 Flow Rate FiO2 07/09/18 11:28 30 96 Room Air 07/09/18 11:00 98.1 79 176/81 (112) 98.1 Weight Weight [ ] Input and Output Intake and Output Intake and Output 07/09/18 06:59 Intake Total 240 ml Balance 240 ml Intake Oral 240 ml # Voids 5 Laboratory Labs Laboratory Tests Test 07/09/18 04:30 White Blood Count 6.3 x10^3/uL (4.0-11.0) Red Blood Count 4.44 x10^6/uL (3.50-5.40) Hemoglobin 13.1 g/dL (12.0-15.5) Hematocrit 39.9 % (36.0-47.0) Mean Corpuscular Volume 90 fL (79-100) Mean Corpuscular Hemoglobin 30 pg (25-35) Mean Corpuscular Hemoglobin Concent 33 g/dL (31-37) Red Cell Distribution Width 13.9 % (11.5-14.5) Platelet Count 313 x10^3/uL (140-400) Neutrophils (%) (Auto) 60 % (31-73) Lymphocytes (%) (Auto) 24 % (24-48) Monocytes (%) (Auto) 13 % (0-9) Eosinophils (%) (Auto) 3 % (0-3) Basophils (%) (Auto) 1 % (0-3) Neutrophils # (Auto) 3.7 x10^3uL (1.8-7.7) Lymphocytes # (Auto) 1.5 x10^3/uL (1.0-4.8) Monocytes # (Auto) 0.8 x10^3/uL (0.0-1.1) Eosinophils # (Auto) 0.2 x10^3/uL (0.0-0.7) Basophils # (Auto) 0.0 x10^3/uL (0.0-0.2) Sodium Level 137 mmol/L (136-145) Potassium Level 4.2 mmol/L (3.5-5.1) Chloride Level 102 mmol/L (98-107) Carbon Dioxide Level 29 mmol/L (21-32) Anion Gap 6 (6-14) Blood Urea Nitrogen 17 mg/dL (7-20) Creatinine 0.8 mg/dL (0.6-1.0) Estimated GFR (Cockcroft-Gault) 70.3 Glucose Level 189 mg/dL (70-99) Calcium Level 10.4 mg/dL (8.5-10.1) Physical Exam HEENT: Neck Supple W Full Motion Chest: Symmetric LUNGS: Clear to Auscultation Heart: S1S2, RRR Abdomen: Soft N/T Extremities: No Edema Neurology: alert, follow commands Assessment Assessment 1. AFIB with RVR; converted to SR overnight. TSH WNL. Echo showed preserved LV systolic function with an EF of 60-65%. Cardizem 180 held due to mild bradycardia. 2. Chest pain, atypical. Most probably secondary to RVR. AMI ruled out. 3. Chronic diastolic CHF; clinically compensated 4. Hypertension; mildly elevated 5. Hyperlipidemia 6. Diabetes, II; as per PCP 7. Dementia Recommendations Decrease Cardizem to 120 given mild bradycardia. ASA for stroke prevention given comorbidities and multiple recent falls Consider outpatient stress test Supportive care May discharge from a CV standpoint and f/u in our office with Dr. Olivares in 1 month. SENAIT OLIVARES MD 07/09/18 1604: CARDIO Progress Notes Assessment Assessment Patient seen and examined. Agree with CLIENT COORDINATOR's assessment and plan. She is currently back in sinus rhythm. Agree with decreasing Cardizem dose for bradycardia. 2-D echo showed normal LV function without any wall motion abnormalities. Plan ischemic evaluation as an outpatient. She is a poor candidate for long-term anticoagulation. LAITH PERDOMO APRN Jul 09, 2018 13:35 SENAIT OLIVARES MD Jul 09, 2018 16:04
[2018-07-09] MEDS: ACETAMINOPHEN 325 MG TABLET. PO PRN ×2 (14:07→22:40)
[2018-07-09 14:48] VITALS: BP 146/81
--- NOTE | 2018-07-09 17:14 | PDOC3 ---
Discharge Summary Date of Admission: Jul 07, 2018 Date of Discharge: Jul 09, 2018 Follow-Up: 1-2 days Admitting Diagnosis comment: Assessment/Plan Assessment/Plan ASSESSMENT AFIB with RVR; CHF Hypertension Hyperlipidemia Diabetes, 2 Dementia, mod severe Hypomagnesemia; replaced plan echo Cardizem ASA hypercalcemia, see pcp as outpt to follow soon home ok with cv today Vitals Vitals Vital Signs Date Time Temp Pulse Resp B/P (MAP) Pulse Ox O2 Delivery O2 Flow Rate FiO2 07/09/18 10:28 20 96 Room Air 07/09/18 09:00 53 159/72 07/09/18 07:00 98.1 98.1 Physical Exam General: Alert, Cooperative, No acute distress, Other (alert to self and place) Heart: Normal S1, Normal S2, Other (tele AFIB with controlled rate) Abdomen: Soft, No tenderness Extremities: No edema, Normal pulses Skin: No significant lesion Labs LABS Pulmonary Vein S1 Velocity 58.9cm/s S2 Velocity 44.18cm/s D2 Velocity 44.2cm/s LEFT VENTRICLE The left ventricle is normal size. There is normal left ventricular wall thickness. The left ventricular systolic function is normal. The Ejection Fraction is 60-65%. There is normal LV segmental wall motion. Transmitral Doppler flow pattern is Grade I-abnormal relaxation pattern. RIGHT VENTRICLE The right ventricle is normal size. The right ventricular systolic function is normal. ATRIA The left atrium size is normal. The right atrium size is normal. The interatrial septum is intact with no evidence for an atrial septal defect or patent foramen ovale as noted on 2-D or Doppler imaging. AORTIC VALVE The aortic valve is calcified but opens well. Doppler and Color Flow revealed no significant aortic regurgitation. There is no significant aortic valvular stenosis. MITRAL VALVE The mitral valve is calcified but opens well. There is no evidence of mitral valve prolapse. There is no mitral valve stenosis. Doppler and Color-flow revealed trace mitral regurgitation. TRICUSPID VALVE The tricuspid valve is normal in structure and function. Doppler and Color Flow revealed mild tricuspid regurgitation. There is mild pulmonary hypertension. The PA pressure was estimated at 36 mmHg. There is no tricuspid valve stenosis. PULMONIC VALVE The pulmonary valve is normal in structure and function. Doppler and Color Flow revealed trace pulmonic valvular regurgitation. There is no pulmonic valvular stenosis. GREAT VESSELS The aortic root is normal in size. The ascending aorta is mildly dilated at 3.7 cm. The IVC is normal in size and collapses >50% with inspiration. PERICARDIAL EFFUSION There is no evidence of significant pericardial effusion. Critical Notification Critical Value: No <Conclusion> The left ventricular systolic function is normal. The Ejection Fraction is 60-65%. There is normal LV segmental wall motion. Transmitral Doppler flow pattern is Grade I-abnormal relaxation pattern. Trace mitral regurgitation. Mild tricuspid regurgitation. There is mild pulmonary hypertension. The PA pressure was estimated at 36 mmHg. There is no evidence of significant pericardial effusion. Signed by : Devaughn Olivares, Electronically Approved : 07/09/2018 09:49:35 Brief Hospital Course Ms. Garza is a 72 old [sex] who presented with [ ] Discharge Medications Current Medications Diltiazem HCl (Cardizem Iv Push) 10 mg 1X ONCE IVP Last administered on at 19:04; Start 07/07/18 at 19:00; Stop 07/07/18 at 19:01; Status DC Diltiazem HCl 125 mg/Dextrose 125 ml @ 5 mls/hr 1X ONCE IV Last administered on 07/07/18at 19:08; Start 07/07/18 at 19:00; Stop 07/08/18 at 19:59; Status DC Rivaroxaban (Xarelto) 15 mg 1X STAT PO Last administered on 07/07/18 19:01; Start 07/07/18 at 18:39; Stop 07/07/18 at 18:47; Status DC Sodium Chloride 500 ml @ 500 mls/hr 1X ONCE IV Last administered on 19:08; Start 07/07/18 at 19:00; Stop 07/07/18 at 19:59; Status DC Magnesium Sulfate/ Dextrose 100 ml @ 100 mls/hr 1X ONCE IV Last administered on 07/07/18at 23:17; Start 07/07/18 at 20:30; Stop 07/07/18 at 21:29; Status DC Acetaminophen (Tylenol) 650 mg PRN Q4HRS PRN PO MILD PAIN / TEMP Last administered on 07/09/18at 14:07; Start 07/08/18 at 01:45 Diltiazem HCl 125 mg/Dextrose 125 ml @ 5 mls/hr CONT PRN IV SEE I/O RECORD Last administered on 07/08/18 08:00; Start 07/08/18 at 08:00; Stop 07/09/18 at 16:11; Status DC Diltiazem HCl (Cardizem 24hr Cd) 180 mg DAILY PO Last administered on 11:51; Start 07/08/18 at 12:30; Stop 07/09/18 at 16:53; Status DC Aspirin (Ecotrin) 81 mg DAILYWBKFT PO Last administered on 07/09/18 10:28; Start 07/08/18 at 12:30 Atorvastatin Calcium (Lipitor) 10 mg QHS PO Last administered on 07/08/18 21: 29; Start 07/08/18 at 21:00 Lorazepam (Ativan) 0.25 mg HS PO Last administered on 07/08/18 21:29; Start at 21:15 Tramadol HCl (Ultram) 50 mg PRN Q4HRS PRN PO PAIN MODERATE Last administered on 07/09/18 10:28; Start 07/08/18 at 21:15 Desvenlafaxine Succinate (Pristiq Er) 50 mg HS PO ; Start 07/08/18 at 21:00; Stop 07/08/18 at 21:09; Status DC Donepezil HCl (Aricept) 10 mg HS PO Last administered on 07/08/18 21:30; Start 07/08/18 at 21:00 Ropinirole HCl (Requip) 0.5 mg HS PO Last administered on 07/08/18 21:30; Start 07/08/18 at 21:00 Desvenlafaxine Succinate (Pristiq Er) 50 mg DAILY PO Last administered on 11:38; Start 07/09/18 at 09:00 Diltiazem HCl (Cardizem 24hr Cd) 120 mg DAILY PO ; Start 07/10/18 at 09:00 Active Scripts Active Reported Tramadol Hcl 50 Mg Tablet 50 Mg PO Q4HRS PRN Aspirin 325 Mg Tablet 1 Tab PO DAILY Ibuprofen 400 Mg Tablet 400 Mg PO DAILY Lisinopril 10 Mg Tablet 1 Tab PO DAILY Miralax (Polyethylene Glycol 3350) 17 Gm Powd.pack 1 Packet PO QHS Senna (Sennosides) 8.6 Mg Tablet 17.2 Mg PO BID 30 Days Ativan (Lorazepam) 0.5 Mg Tablet 0.25 Mg PO HS Aricept (Donepezil Hcl) 10 Mg Tablet 1 Tab PO QHS Norvasc (Amlodipine Besylate) 5 Mg Tablet 1 Tab PO DAILY Requip (Ropinirole Hcl) 0.5 Mg Tablet 1 Tab PO QHS Klor-Con 10 (Potassium Chloride) 10 Meq Tablet.er 10 Meq PO DAILY 30 Days Lasix (Furosemide) 20 Mg Tablet 20 Mg PO DAILY Pristiq Er (Desvenlafaxine Succinate) 50 Mg Tab.er.24h 1 Tab PO DAILY Isosorbide Mononitrate Er (Isosorbide Mononitrate) 30 Mg Tab.er.24h 1 Tab PO DAILY Mag-Oxide (Magnesium Oxide) 400 Mg Tablet 400 Mg PO DAILY Tramadol Hcl 50 Mg Tablet 50 Mg PO BID Vital Signs Vital Signs Date Time Temp Pulse Resp B/P (MAP) Pulse Ox O2 Delivery O2 Flow Rate FiO2 07/09/18 14:48 97.7 57 20 146/81 (102) 94 Room Air 97.7 Labs Laboratory Tests Test 07/07/18 18:48 07/07/18 18:50 07/07/18 23:00 07/08/18 03:00 White Blood Count 6.6 x10^3/uL (4.0-11.0) 6.7 x10^3/uL (4.0-11.0) Red Blood Count 4.62 x10^6/uL (3.50-5.40) 4.55 x10^6/uL (3.50-5.40) Hemoglobin 14.0 g/dL (12.0-15.5) 13.4 g/dL (12.0-15.5) Hematocrit 41.8 % (36.0-47.0) 41.8 % (36.0-47.0) Mean Corpuscular Volume 91 fL (79-100) 92 fL (79-100) Mean Corpuscular Hemoglobin 30 pg (25-35) 29 pg (25-35) Mean Corpuscular Hemoglobin Concent 34 g/dL (31-37) 32 g/dL (31-37) Red Cell Distribution Width 13.9 % (11.5-14.5) 14.5 % (11.5-14.5) Platelet Count 329 x10^3/uL (140-400) 317 x10^3/uL (140-400) Neutrophils (%) (Auto) 63 % (31-73) Lymphocytes (%) (Auto) 23 % (24-48) Monocytes (%) (Auto) 11 % (0-9) Eosinophils (%) (Auto) 2 % (0-3) Basophils (%) (Auto) 1 % (0-3) Neutrophils # (Auto) 4.2 x10^3uL (1.8-7.7) Lymphocytes # (Auto) 1.5 x10^3/uL (1.0-4.8) Monocytes # (Auto) 0.7 x10^3/uL (0.0-1.1) Eosinophils # (Auto) 0.2 x10^3/uL (0.0-0.7) Basophils # (Auto) 0.0 x10^3/uL (0.0-0.2) Prothrombin Time 13.1 SEC (11.7-14.0) Prothromb Time International Ratio 1.0 (0.8-1.1) Sodium Level 138 mmol/L (136-145) 137 mmol/L (136-145) Potassium Level 4.4 mmol/L (3.5-5.1) 4.0 mmol/L (3.5-5.1) Chloride Level 100 mmol/L (98-107) 101 mmol/L (98-107) Carbon Dioxide Level 31 mmol/L (21-32) 30 mmol/L (21-32) Anion Gap 7 (6-14) 6 (6-14) Blood Urea Nitrogen 22 mg/dL (7-20) 15 mg/dL (7-20) Creatinine 0.8 mg/dL (0.6-1.0) 0.8 mg/dL (0.6-1.0) Estimated GFR (Cockcroft-Gault) 70.3 70.3 BUN/Creatinine Ratio 28 (6-20) 19 (6-20) Glucose Level 164 mg/dL (70-99) 177 mg/dL (70-99) Calcium Level 10.8 mg/dL (8.5-10.1) 10.6 mg/dL (8.5-10.1) Magnesium Level 1.7 mg/dL (1.8-2.4) 1.9 mg/dL (1.8-2.4) Total Bilirubin 0.3 mg/dL (0.2-1.0) 0.4 mg/dL (0.2-1.0) Aspartate Amino Transf (AST/SGOT) 32 U/L (15-37) 26 U/L (15-37) Alanine Aminotransferase (ALT/SGPT) 39 U/L (14-59) 35 U/L (14-59) Alkaline Phosphatase 176 U/L (46-116) 146 U/L (46-116) Troponin I Quantitative < 0.017 ng/mL (0.000-0.055) < 0.017 ng/mL (0.000-0.055) 0.024 ng/mL (0.000-0.055) CF-Ikx-L-Type Natriuretic Peptide 78 pg/mL (0-124) Total Protein 7.5 g/dL (6.4-8.2) 6.8 g/dL (6.4-8.2) Albumin 2.8 g/dL (3.4-5.0) 2.7 g/dL (3.4-5.0) Albumin/Globulin Ratio 0.6 (1.0-1.7) 0.7 (1.0-1.7) Thyroid Stimulating Hormone (TSH) 2.788 uIU/mL (0.358-3.74) Ethyl Alcohol Level < 10 mg/dL (0-10) Urine Collection Type Unknown Urine Color Yellow Urine Clarity Clear Urine pH 7.0 Urine Specific [place] <=1.005 Urine Protein Negative mg/dL (NEG-TRACE) Urine Glucose (UA) Negative mg/dL (NEG) Urine Ketones (Stick) Negative mg/dL (NEG) Urine Blood Negative (NEG) Urine Nitrite Negative (NEG) Urine Bilirubin Negative (NEG) Urine Urobilinogen Dipstick 0.2 mg/dL (0.2 mg/dL) Urine Leukocyte Esterase Trace (NEG) Urine RBC Occ /HPF (0-2) Urine WBC 1-4 /HPF (0-4) Urine Squamous Epithelial Cells Few /LPF Urine Bacteria 0 /HPF (0-FEW) Triglycerides Level 138 mg/dL (0-150) Cholesterol Level 182 mg/dL (0-200) LDL Cholesterol, Calculated 104 mg/dL (0-100) VLDL Cholesterol, Calculated 28 mg/dL (0-40) Non-HDL Cholesterol Calculated 132 mg/dL (0-129) HDL Cholesterol 50 mg/dL (40-60) Cholesterol/HDL Ratio 3.6 Test 07/09/18 04:30 White Blood Count 6.3 x10^3/uL (4.0-11.0) Red Blood Count 4.44 x10^6/uL (3.50-5.40) Hemoglobin 13.1 g/dL (12.0-15.5) Hematocrit 39.9 % (36.0-47.0) Mean Corpuscular Volume 90 fL (79-100) Mean Corpuscular Hemoglobin 30 pg (25-35) Mean Corpuscular Hemoglobin Concent 33 g/dL (31-37) Red Cell Distribution Width 13.9 % (11.5-14.5) Platelet Count 313 x10^3/uL (140-400) Neutrophils (%) (Auto) 60 % (31-73) Lymphocytes (%) (Auto) 24 % (24-48) Monocytes (%) (Auto) 13 % (0-9) Eosinophils (%) (Auto) 3 % (0-3) Basophils (%) (Auto) 1 % (0-3) Neutrophils # (Auto) 3.7 x10^3uL (1.8-7.7) Lymphocytes # (Auto) 1.5 x10^3/uL (1.0-4.8) Monocytes # (Auto) 0.8 x10^3/uL (0.0-1.1) Eosinophils # (Auto) 0.2 x10^3/uL (0.0-0.7) Basophils # (Auto) 0.0 x10^3/uL (0.0-0.2) Sodium Level 137 mmol/L (136-145) Potassium Level 4.2 mmol/L (3.5-5.1) Chloride Level 102 mmol/L (98-107) Carbon Dioxide Level 29 mmol/L (21-32) Anion Gap 6 (6-14) Blood Urea Nitrogen 17 mg/dL (7-20) Creatinine 0.8 mg/dL (0.6-1.0) Estimated GFR (Cockcroft-Gault) 70.3 Glucose Level 189 mg/dL (70-99) Calcium Level 10.4 mg/dL (8.5-10.1) Laboratory Tests Test 07/09/18 04:30 White Blood Count 6.3 x10^3/uL (4.0-11.0) Red Blood Count 4.44 x10^6/uL (3.50-5.40) Hemoglobin 13.1 g/dL (12.0-15.5) Hematocrit 39.9 % (36.0-47.0) Mean Corpuscular Volume 90 fL (79-100) Mean Corpuscular Hemoglobin 30 pg (25-35) Mean Corpuscular Hemoglobin Concent 33 g/dL (31-37) Red Cell Distribution Width 13.9 % (11.5-14.5) Platelet Count 313 x10^3/uL (140-400) Neutrophils (%) (Auto) 60 % (31-73) Lymphocytes (%) (Auto) 24 % (24-48) Monocytes (%) (Auto) 13 % (0-9) Eosinophils (%) (Auto) 3 % (0-3) Basophils (%) (Auto) 1 % (0-3) Neutrophils # (Auto) 3.7 x10^3uL (1.8-7.7) Lymphocytes # (Auto) 1.5 x10^3/uL (1.0-4.8) Monocytes # (Auto) 0.8 x10^3/uL (0.0-1.1) Eosinophils # (Auto) 0.2 x10^3/uL (0.0-0.7) Basophils # (Auto) 0.0 x10^3/uL (0.0-0.2) Sodium Level 137 mmol/L (136-145) Potassium Level 4.2 mmol/L (3.5-5.1) Chloride Level 102 mmol/L (98-107) Carbon Dioxide Level 29 mmol/L (21-32) Anion Gap 6 (6-14) Blood Urea Nitrogen 17 mg/dL (7-20) Creatinine 0.8 mg/dL (0.6-1.0) Estimated GFR (Cockcroft-Gault) 70.3 Glucose Level 189 mg/dL (70-99) Calcium Level 10.4 mg/dL (8.5-10.1) Allergies Allergies Coded Allergies Type Severity Reaction Last Updated Verified Sulfa (Sulfonamide Antibiotics) Allergy Unknown 07/07/18 Yes iodine Allergy Unknown 07/07/18 Yes penicillin G Allergy Unknown 07/07/18 Yes rosiglitazone Allergy Unknown 07/07/18 Yes Disposition/Orders: Other (snf bed) Patient Instructions d/c planning 34 min AUGUSTINE ELDRIDGE MD Jul 09, 2018 17:14
--- NOTE | 2018-07-09 17:19 | SNU/HH DC ---
DISCHARGE ORDERS DISCHARGE INFORMATION: CONDITION ON DISCHARGE: Stable CODE STATUS: Code Status: Full HALF-WAY: SNF STAY <30 DAYS: Yes HOSPICE: HOSPICE: No HOSPICE EVAL & TREAT: No POST DISCHARGE ORDERS: ACTIVITY ORDERS: Activity as tolerated DIET AFTER DISCHARGE: Cardiac CHECKS AFTER DISCHARGE: CHECKS AFTER DISCHARGE: Check blood press - daily TREATMENT/EQUIPMENT ORDERS: Physical Therapy For: Evalulation/Treatment Occupational Therapy For: Evaluation/Treatment Speech Language Pathology For: Evaluation/Treatment DISCHARGE MEDICATIONS: Home Meds Reported Medications Tramadol Hcl (TRAMADOL HCL) 50 Mg Tablet, 50 MG PO Q4HRS PRN for PAIN, TAB 07/09/18 Aspirin (ASPIRIN) 325 Mg Tablet, 1 TAB PO DAILY for heart, #30 TAB 5 Refills 07/09/18 Ibuprofen (IBUPROFEN) 400 Mg Tablet, 400 MG PO DAILY for pain, TAB 07/09/18 Lisinopril (LISINOPRIL) 10 Mg Tablet, 1 TAB PO DAILY for HTN, #30 TAB 5 Refills 07/09/18 Polyethylene Glycol 3350 (MIRALAX) 17 Gm Powd.pack, 1 PACKET PO QHS for constipation, #30 PACKET 3 Refills 07/09/18 Sennosides (SENNA) 8.6 Mg Tablet, 17.2 MG PO BID for constipation for 30 Days, # 120 TAB 07/08/18 Lorazepam (ATIVAN) 0.5 Mg Tablet, 0.25 MG PO HS for anxiety, TAB 07/08/18 Donepezil Hcl (ARICEPT) 10 Mg Tablet, 1 TAB PO QHS for dementia, #90 TAB 3 Refills 07/08/18 Amlodipine Besylate (NORVASC) 5 Mg Tablet, 1 TAB PO DAILY for hypertension, #30 TAB 5 Refills 07/08/18 Ropinirole Hcl (REQUIP) 0.5 Mg Tablet, 1 TAB PO QHS for restless leg, #30 TAB 1 Refill 07/08/18 Potassium Chloride (Klor-Con 10) 10 Meq Tablet.er, 10 MEQ PO DAILY for replacement for 30 Days, #30 TAB.SR 07/08/18 Furosemide (LASIX) 20 Mg Tablet, 20 MG PO DAILY for diuretic, TAB 07/08/18 Desvenlafaxine Succinate (PRISTIQ ER) 50 Mg Tab.er.24h, 1 TAB PO DAILY for depression, #30 TAB 5 Refills 3/11/19 Isosorbide Mononitrate (ISOSORBIDE MONONITRATE ER) 30 Mg Tab.er.24h, 1 TAB PO DAILY for blood pressure, #30 TAB 5 Refills 07/08/18 Magnesium Oxide (MAG-OXIDE) 400 Mg Tablet, 400 MG PO DAILY for replacement, TAB 07/08/18 Tramadol Hcl (TRAMADOL HCL) 50 Mg Tablet, 50 MG PO BID for pain, TAB 07/08/18 AUGUSTINE ELDRIDGE MD Jul 09, 2018 17:19
[2018-07-09 19:00] VITALS: BP 157/69
[2018-07-09] MEDS: DONEPEZIL HCL 10 MG TABLET. PO SCH (20:40)
[2018-07-09] MEDS: LORazepam 0.5 MG TABLET PO SCH (20:40)
[2018-07-09] MEDS: rOPINIRole 0.25 MG TABLET. PO SCH (20:40)
[2018-07-09] MEDS: ATORVASTATIN CALCIUM 10 MG TABLET. PO SCH (20:40)
[2018-07-09 23:00] VITALS: BP 161/85
[2018-07-10] MEDS: traMADol 50 MG TABLET PO PRN (02:57)
[2018-07-10 03:00] VITALS: BP 144/84
[2018-07-10 03:59] LABS: BASO % 1 % (0-3); EOS # 0.2 x10^3/uL (0.0-0.7); EOS % 3 % (0-3); HEMATOCRIT 39.8 % (36.0-47.0); HEMOGLOBIN 12.9 g/dL (12.0-15.5); LYMPH # 1.7 x10^3/uL (1.0-4.8); LYMPH % 25 % (24-48); MEAN CORPUSCULAR HEMOGLOBIN 29 pg (25-35); MEAN CORPUSCULAR HGB CONC 33 g/dL (31-37); MEAN CORPUSCULAR VOLUME 90 fL (79-100); MONO # 0.8 x10^3/uL (0.0-1.1); MONO % 12 % (0-9); NEUT % 59 % (31-73); PLATELET COUNT 334 x10^3/uL (140-400); RED BLOOD COUNT 4.43 x10^6/uL (3.50-5.40); RED CELL DISTRIBUTION WIDTH 13.9 % (11.5-14.5); WHITE BLOOD COUNT 6.8 x10^3/uL (4.0-11.0)
[2018-07-10 04:24] LABS: CALCIUM 10.5 mg/dL (8.5-10.1); CREATININE 0.9 mg/dL (0.6-1.0); GFR 61.4; POTASSIUM 3.8 mmol/L (3.5-5.1)
[2018-07-10] MEDS: ACETAMINOPHEN 325 MG TABLET. PO PRN (06:22)
[2018-07-10] MEDS: ASPIRIN ENTERIC COATED 81 MG TABLET.DR. PO SCH (08:07)
[2018-07-10] MEDS: DESVENLAFAXINE 25 MG TAB.ER.24H PO SCH (08:07)
[2018-07-10 08:09] VITALS: BP 142/81
--- NOTE | 2018-07-10 09:05 | NUR ---
SS following up with discharge planning. Discharge orders received for return to [facility], ; fax [phone]. SS phoned and faxed clinical and discharge orders to [facility]. Pt will discharge today and return to [facility] at 1030. [place] providing transportation. Pt, pt's RN, and pt's family notified.
--- NOTE | 2018-07-10 10:45 | NUR ---
report called to [facility]. transportation from [facility] picked her up per w/c. playground monitor removed and saline locks x2 removed.
== END 2018-07-10 10:45 | DRG 308 ==
LOC: ER 18:29 → 1 WEST ICU 19:30 → CVICU 07-09 08:24
PROVIDERS: ADMIT Internal Medicine; ATTEND Internal Medicine
DX: I48.91 Unspecified atrial fibrillation (principal); E43 Unspecified severe protein-calorie malnutrition; I50.32 Chronic diastolic (congestive) heart failure; I11.0 Hypertensive heart disease with heart failure; E11.9 Type 2 diabetes mellitus without complications; E03.9 Hypothyroidism, unspecified; K21.9 Gastro-esophageal reflux disease without esophagitis; J44.9 Chronic obstructive pulmonary disease, unspecified; F03.90 Unspecified dementia, unspecified severity, without behavioral disturbance, psychotic disturbance, mood disturbance, and anxiety; E78.00 Pure hypercholesterolemia, unspecified; E78.5 Hyperlipidemia, unspecified; E83.42 Hypomagnesemia; Z88.0 Allergy status to penicillin; Z88.2 Allergy status to sulfonamides; Z88.8 Allergy status to other drugs, medicaments and biological substances; Z91.041 Radiographic dye allergy status; W01.0XXA Fall on same level from slipping, tripping and stumbling without subsequent striking against object, initial encounter; Y93.89 Activity, other specified; Y92.89 Other specified places as the place of occurrence of the external cause; Y99.8 Other external cause status; Z82.49 Family history of ischemic heart disease and other diseases of the circulatory system; F32.9 Major depressive disorder, single episode, unspecified; F41.9 Anxiety disorder, unspecified; M19.90 Unspecified osteoarthritis, unspecified site
CPT/HCPCS: 36415; 71045; 80048; 80053; 80061; 81001; 83735; 83880; 84443; 84484; 85025; 85027; 85610; 87086; 93005; 93306; 96365; 96376; G0480; J3475; J3490; J7040; 99291-25